=== PATIENT | male | born 1990 | race American Indian/Alaskan Native ===

== ENCOUNTER 2025-02-19 13:57 | Emergency (ER) | payer MEDICAID, SELFPAY ==
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
[2025-02-19 14:17] VITALS: BP 107/67; PULSE 108; RESP 20; TEMP 36.9; O2SAT 98
[2025-02-19 14:21] VITALS: PULSE 112; RESP 18; O2SAT 98; BMI 33.4
[2025-02-19 14:34] LABS: Basophils # (Auto) 0.1 Thou/mm3 (0.0-0.2); Basophils % (Auto) 2 % (0-2.5); Eosinophils # (Auto) 0.2 Thou/mm3 (0.0-0.5); Eosinophils % (Auto) 3 % (0-10); Hematocrit 41.7 % (41.0-53.0); Hemoglobin 14.1 g/dL (13.5-16.0); Immature Granulocytes Auto 0.00 Thou/mm3 (0.00-0.00); Lymphocytes # (Auto) 2.1 Thou/mm3 (1.0-4.8); Lymphocytes % (Auto) 41 % (10-50); Mean Corpuscular HGB Conc 33.8 g/dl (31.0-37.0); Mean Corpuscular Hemoglobin 29.8 pg (25.0-35.0); Mean Corpuscular Volume 88 fL (80-100); Monocytes # (Auto) 0.3 Thou/mm3 (0.0-0.8); Monocytes % (Auto) 5 % (0-12); Neutrophils # (Auto) 2.4 Thou/mm3 (1.8-7.7); Neutrophils % (Auto) 48 % (37-80); Nucleated Red Blood Cell # 0.00 Thou/mm3 (0.00-0.00); Nucleated Red Blood Cell % 0 /100 WBC (0); Platelet Count 385 Thou/mm3 (140-440); RDW Standard Deviation 44.0 fL (35.1-43.9); Red Blood Count 4.73 Miln/mm3 (4.50-5.90); White Blood Count 5.0 Thou/mm3 (3.8-10.6)
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
[2025-02-19 14:49] LABS: INR 1.0 (0.9-1.3); Prothrombin Time 10.6 Seconds (9.0-12.2)
[2025-02-19 15:06] LABS: Alanine Aminotransferase 18 U/L (10-49); Albumin, Serum 4.2 gm/dL (3.5-5.0); Albumin/Globulin Ratio 1.4 (1.2-2.2); Alcohol, Blood Medical 284.4 mg/dL (0-10.0); Alkaline Phosphatase 99 U/L (46-116); Anion Gap 11 (7-16); Aspartate Amino Transferase 24 U/L (0-34); BUN/Creatinine Ratio 10 Ratio (12-20); Bilirubin,Total 0.3 mg/dL (0.3-1.2); Blood Urea Nitrogen 8 mg/dL (9-23); Calcium 8.7 mg/dL (8.3-10.6); Calcium (Corrected) 8.7 mg/dL (8.5-10.1); Carbon Dioxide 24.8 mMol/L (20.0-31.0); Chloride 110 mMol/L (98-107); Creatinine (Component) 0.8 mg/dL (0.6-1.3); Estimated Creatinine Clearance 146.2 mL/min (>60); Globulin 3.1 gm/dL (2.3-3.5); Glucose 99 mg/dL (74-106); Osmolality,Calculated 288 (275-295); Potassium 4.0 mMol/L (3.4-5.1); Sodium 146 mMol/L (136-145); Total Protein 7.3 gm/dL (5.7-8.2); eGFR > 60 See Note
[2025-02-19 15:49] VITALS: BP 116/72; PULSE 87; RESP 14; O2SAT 97
[2025-02-19] MEDS: cefTRIAXone 2 GM in SODIUM CHLORIDE 0.9% (Popper) 50 ML IV (16:07)
[2025-02-19] MEDS: DIPHTH,PERTUSS(ACELL),TET VAC 0.5 ML SYR- ADULT IMi (16:08)
[2025-02-19] MEDS: OLANZapine INJ 10 MG, Sterile Water 2.1 ML IM (16:08)
[2025-02-19 18:44] VITALS: BP 121/71; PULSE 94; RESP 16; TEMP 37.1; O2SAT 95
[2025-02-19 19:44] VITALS: BP 103/70; PULSE 90; RESP 18; O2SAT 100
--- NOTE | 2025-02-19 19:45 | PC.NURSE ---
Report recieved from Donald. Pt asleep, arouses easily.
[2025-02-19 21:39] VITALS: BP 101/69; PULSE 95; RESP 19; O2SAT 100
--- NOTE | 2025-02-19 23:17 | PD.EDADDENDU ---
Emergency Room Addendum <Ada Stroud - Last Filed: 02/20/25 01:24> Addendum Narrative: I took over the care from previous shift physician at 11 PM on 02/19/2025. See previous notes for complete H & P and ED course. Diagnoses include: Alcohol abuse, Laceration of the scalp. Treatment here included Observation until sober. Based on my best medical judgment, made decision no further evaluation or treatment indicated at this time. Patient understands and agrees to the discharge instructions customized and printed, see below. Discharge Instructions from Dr. Boyce printed for you: 1. You are being discharged because you demonstrated to the staff (including myself and Nura, your nurse) that you are alert and awake and oriented. And you ambulated to the bathroom on your own without any problem. 2. Your scalp laceration was repaired with 5 teddy. -- Keep the current dressing intact for 24 hours. -- After 24 hours, change the dressing once daily. -- First remove the dressing gently. If it does not come off easily, run water through it until it comes off easily. -- Then gently wash with soap and water. -- After completely drying, apply antibiotic ointment and new dressing. -- See your doctor or return here in 10 days to remove your 5 teddy. 3. Quit alcohol and all drugs at all cost to prevent severe and potentially fatal injuries and illnesses. 4. See a private doctor on 02/22/2025 for recheck and further care. Ask for help until you are completely better. Ask for help to quit alcohol and drugs. Ask to review all test results and official radiology reports, to make sure you receive all necessary follow-ups and monitoring. 5. Seek immediate medical care with fever, spreading redness from the wound, or with any concerns. Campbell Boyce MD <Campbell Boyce MD - Last Filed: 02/20/25 03:03> Addendum Narrative: I took over the care from YOEL Ledesma at 11 PM on 02/19/2025. See previous notes for complete H & P and ED course. Diagnoses include: Alcohol abuse, Laceration of the scalp. When patient's mental status returned to baseline and he ambulated without problems, he was discharged. Based on my best medical judgment, made decision no further evaluation or treatment indicated at this time. Patient understands and agrees to the discharge instructions customized and printed, see below. Discharge Instructions from Dr. Boyce printed for you: 1. You are being discharged because you demonstrated to the staff (including myself and Nura, your nurse) that you are alert and awake and oriented. And you ambulated to the bathroom on your own without any problem. 2. Your scalp laceration was repaired with 5 teddy. -- Keep the current dressing intact for 24 hours. -- After 24 hours, change the dressing once daily. -- First remove the dressing gently. If it does not come off easily, run water through it until it comes off easily. -- Then gently wash with soap and water. -- After completely drying, apply antibiotic ointment and new dressing. -- See your doctor or return here in 10 days to remove your 5 teddy. 3. Quit alcohol and all drugs at all cost to prevent severe and potentially fatal injuries and illnesses. 4. See a private doctor on 02/22/2025 for recheck and further care. Ask for help until you are completely better. Ask for help to quit alcohol and drugs. Ask to review all test results and official radiology reports, to make sure you receive all necessary follow-ups and monitoring. 5. Seek immediate medical care with fever, spreading redness from the wound, or with any concerns. Campbell Boyce MD
[2025-02-20 02:10] VITALS: PULSE 88; RESP 18; TEMP 36.7; O2SAT 99
== END 2025-02-20 02:24 | disposition home or self-care (01) ==
PROVIDERS: Physician Assistant Medical; Emergency Provider Emergency Medicine
DX: S01.01XA Laceration without foreign body of scalp, initial encounter (principal); S19.9XXA Unspecified injury of neck, initial encounter; F10.10 Alcohol abuse, uncomplicated; Y90.8 Blood alcohol level of 240 mg/100 ml or more; Y09 Assault by unspecified means; Z23 Encounter for immunization
CPT/HCPCS: 36415; 70450; 72125; 80053; 80307; 80320; 81001; 85025; 85610; 90471; 90715; 96365; 99284; A4216; J0696; J2358; J7050; G0480; J2359

== ENCOUNTER 2025-03-03 08:22 | Emergency (ER) | payer MEDICAID, SELFPAY ==
[2025-03-03 08:29] VITALS: BP 137/97; PULSE 98; RESP 18; TEMP 36.9; O2SAT 99; BMI 29.6
--- NOTE | 2025-03-03 08:49 | PD.EDWOUND ---
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 Patient reports no headache or dizziness no weakness no chest pain or shortness of breath at this time Limitations: no limitations Related Data Allergies Allergy/AdvReac Type Severity Reaction Status Date / Time No Known Allergies Allergy Verified 03/03/25 08:27 Review of Systems Review of Systems Systems Reviewed: All systems reviewed, normal except as documented Constitutional Constitutional: Reports system reviewed and no additional complaints, except as documented, Denies fever(s) and Denies headache(s) Eyes Eyes: Reports system reviewed and no additional complaints, except as documented and Denies blurry vision ENT Ears, Nose, Mouth, and Throat: Reports system reviewed and no additional complaints, except as documented, Denies headache(s), Denies nasal congestion and Denies nasal discharge Cardiovascular Cardiovascular: Reports system reviewed and no additional complaints, except as documented, Denies chest pain and Denies dyspnea Respiratory Respiratory: Reports system reviewed and no additional complaints, except as documented, Denies chest congestion, Denies cough and Denies dyspnea Gastrointestinal Gastrointestinal: Reports system reviewed and no additional complaints, except as documented and Denies abdominal pain Integumentary/Breasts Skin/Breast: Reports system reviewed and no additional complaints, except as documented, Denies rash and Reports wounds (Suture removal) Neurologic Neurologic: Reports system reviewed and no additional complaints, except as documented, Reports as per HPI and Denies headache(s) Past Medical History Past Medical History CARDIAC: Negative Congestive Heart Failure RESPIRATORY: Negative Chronic Obstructive Pulmonary Disease (COPD) GENITOURINARY: Negative Renal Disease ENDOCRINE: Negative Diabetes Mellitus Type 1 or Diabetes Mellitus Type 2 Social History SMOKING STATUS: Light (< 1 pack/day) ED Exam General Limitations: Present no limitations General appearance: Present alert and in no apparent distress Head Head exam: Present other ([place] in place scalp) Eye Eye exam: Present normal appearance, PERRL and EOMI; Absent conjunctival injection ENT ENT exam: Present normal exam, normal oropharynx and mucous membranes moist Neck Neck exam: Present normal inspection, full ROM and trachea midline Chest Chest inspection: Present normal inspection and symmetric chest wall rise Respiratory Respiratory exam: Present normal lung sounds bilaterally; Absent respiratory distress Cardiovascular Cardiovascular exam: Present regular rate, normal rhythm and normal heart sounds Abdominal Exam Abdominal exam: Present soft and normal bowel sounds Extremities Exam Extremities exam: Present normal inspection and full ROM Back Exam Back exam: Present normal inspection and full ROM Neurological Exam Neurological exam: Present alert, oriented X3, CN II-XII intact, normal gait and reflexes normal; Absent motor sensory deficit Psychiatric Psychiatric exam: Present normal affect and normal mood Skin Skin exam: Present warm, dry and other (Encounter for suture removal [place] in place scalp) Course Quality Measures none Vital Signs Vital signs: Vital Signs Temperature 98.5 F 03/03/25 08:29 Pulse Rate 98 03/03/25 08:29 Respiratory Rate 18 03/03/25 08:29 Blood Pressure 137/97 H 03/03/25 08:29 Pulse Oximetry (%) 99 03/03/25 08:29 Oxygen Delivery Method Room Air 03/03/25 08:29 O2 saturation 99% r.a wnl Wound / Laceration MDM Narrative MDM Narrative:: 34-year-old male who is currently homeless admits to methamphetamine use daily reports he been homeless for 10 years presents for request to remove teddy from his scalp. Patient reports no headache or dizziness no weakness no chest pain or shortness of breath at this time On exam patient well-appearing patient does not appear ill or toxic in no acute distress On exam patient hemodynamically stable All teddy removed in their entirety No evidence of infection Patient discharged home in no distress to follow-up with primary care doctor in the next 24 to 48 hours and for any worsening symptoms to return to the ER immediately Patient data External records reviewed:: [facility] previous records Clinical information provided by:: patient Social determinants that could affect healthcare access:: substance use Patient has the following chronic illnesses:: Substance abuse How is presenting disease/condition affected by chronic disease/condition?: exacerbated by Evaluation data The following diagnostics were reviewed and interpreted by me:: other (specify) (N/A) Lab and/or radiology exams considered but not ordered:: Stated t not ordered Interpretation Summary: N/A Medications / Prescriptions Medications or Prescriptions considered but not ordered:: Given no meds Medication administrations:: No meds Consultations Consultation(s) initiated? (list below): No Diagnosis Wound Differential Diagnosis: laceration, abrasion, avulsion of skin and other (Suture removal) Most likely diagnosis given after review of the tests above:: Suture removal Admission Indicated Admission indicated?: not indicated Admission Request Was there a request for admission?: No Disposition Plan Disposition Plan: Discharge Discharge Attestation Discharge Attestation: The patient and all family members were given an opportunity to ask questions and understood the discharge instructions. Discharge instructions specifically effects, indications for sooner follow up or return to the emergency department, and the expected course of current diagnosis. Patient condition: Stable Discharge Plan Plan Patient Disposition: HOME (Self Care) Discharge Disposition comment: Stable Problem List Clinical Impression: Encounter for staple removal Patient/Caregiver Discharge Instructions Education Materials: ED Stitches/Staple Removal No ... Additional Instructions: Please follow up with your primary care doctor in the next 24-48hrs for any worsening symptoms return here immediately Print Language: [place] Citizen Stand Alone Forms: Krista Award Info., Patient Portal Info Letter YOEL/STEPHEN Supervising Physician YOEL/STEPHEN Supervising Physician: Dr. hadley
== END 2025-03-03 08:41 | disposition home or self-care (01) ==
PROVIDERS: Emergency Provider Emergency Medicine
DX: S01.01XD Laceration without foreign body of scalp, subsequent encounter (principal); X58.XXXD Exposure to other specified factors, subsequent encounter; Z59.00 Homelessness unspecified
CPT/HCPCS: 99283